=== PATIENT | female | born 1945 | race Caucasian/White ===

== ENCOUNTER → 2016-07-11 | Outpatient (CLI) | payer OTHER ==
[~2016-07-11] MED LIST: AMLO-145 PO; ASPI325T4 PO; ATOR10TA65 PO; BENA20TA48 PO; CHLO25TA13 PO; CIPR500T4 PO; CLOP75TA27 PO; Carvedilol PO; GABA100C14 PO; HYDR-3498 PO; IBUP-1542 PO; LANT3I SC; METF1000 PO; OPHTHALMIC IRRIG SOLUTION 120 ML ONE; PHENYLephrine 10% 5 ML OPH ONE; PROPARACAINE 0.5% 15 ML OPH ONE; SITA100T8 PO; TROPICAMIDE 1% 3 ML OPH ONE; [UNRECOGNIZED DRUG - OTHER] TOP
== END | disposition home or self-care (01) ==
LOC: RAD 11:08
PROVIDERS: ATTEND Ophthalmology
DX: H26.493 Other secondary cataract, bilateral (principal)
CPT/HCPCS: 66821; Z7610

== ENCOUNTER 2017-09-19 21:26 | Inpatient (IN) | END 2017-09-26 14:55 | disposition home health service (06) | DRG 481 ==